=== PATIENT | male | born 1960 | race Caucasian/White ===

== ENCOUNTER 2017-08-15 09:08 | Inpatient (IN) | payer MEDICAID ==
[~2017-08-15] VITALS: Ht 175.3 cm; Wt 79.5 kg
[2017-08-15] VITALS (14 sets, daily range): BP systolic 102–151; BP diastolic 51–88
[2017-08-15] MEDS ORDERED: DOXY50 PO (09:25)
[2017-08-15] MEDS ORDERED: SODIUM CHLORIDE 0.9% 1,000 ML IV ONE (10:30)
[2017-08-15] MEDS ORDERED: ONDANSETRON HCL 4 MG/2 ML VIAL IVP ONE (10:30)
[2017-08-15 10:52] LABS: BASOPHILS % (AUTO) 0.1 % (0.0-2.0); EOSINOPHILS % (AUTO) 0.1 % (1.0-6.0); LYMPHOCYTES # (AUTO) 1.2 K/uL (1.0-4.8); LYMPHOCYTES % (AUTO) 5.8 % (22.0-44.0); MEAN CORPUSCULAR HGB CONC 31.5 G/dL (31.0-37.0); MEAN CORPUSCULAR VOLUME 73 fL (80-100); MONOCYTES % (AUTO) 4.8 % (2.0-9.0); NEUTROPHILS # (AUTO) 18.4 K/uL (1.8-7.7); PLATELET COUNT (AUTO) 658 K/uL (150-450); RED BLOOD CELL COUNT(AUTO) 1.46 MIL/uL (4.50-5.90); RED CELL DISTRIBUTION WIDTH 18.9 % (11.5-14.5); WHITE BLOOD COUNT (AUTO) 20.6 K/uL (4.5-11.0)
[2017-08-15 10:54] LABS: HEMOGLOBIN 3.4 g/dL (13.5-17.5)
[2017-08-15 10:55] LABS: HEMATOCRIT 10.7 % (41-53); NEUTROPHILS % (AUTO) 89.2 % (40.0-70.0)
[2017-08-15 10:59] LABS: ANION GAP 9 mmol/L (8-16); CARBON DIOXIDE 23 mmol/L (22-29); CHLORIDE 106 mmol/L (98-107); CREATININE 1.12 mg/dL (0.60-1.30); GLOMERULAR FILTR. RATE CALC > 60 mL/min (>60); POTASSIUM 4.4 mmol/L (3.5-5.1); SODIUM SERUM 138 mmol/L (136-145); UREA NITROGEN, BLOOD 27 mg/dL (7-18)
[2017-08-15 11:04] LABS: ALANINE AMINOTRANSFERASE 9 U/L (12-78); ALBUMIN 2.3 g/dL (3.4-5.0); ASPARTATE AMINOTRANSFERASE 10 U/L (15-37); BILIRUBIN,TOTAL 0.1 mg/dL (0.1-1.0); TOTAL PROTEIN, SERUM 5.9 g/dL (6.4-8.2)
[2017-08-15 11:05] LABS: LACTIC ACID 1.4 mmol/L (0.4-2.0)
[2017-08-15 11:26] LABS: RBC MORPHOLOGY COMMENT ABNORMAL RBC MORPH
[2017-08-15] MEDS ORDERED: PANTOPRAZOLE SODIUM 80 MG in SODIUM CHLORIDE 0.9% 50 ML IV ONE (11:30)
[2017-08-15] MEDS ORDERED: IOVERSOL 350 MG/ML 100 ML VIAL ONE (12:17)
[2017-08-15] MEDS ORDERED: ACETAMINOPHEN 325 MG TABLET PO PRN ×2 (14:30→14:45)
[2017-08-15] MEDS ORDERED: ONDANSETRON HCL 4 MG/2 ML VIAL IVP PRN ×2 (14:30→14:45)
[2017-08-15] MEDS ORDERED: MAGNESIUM HYDROXIDE SUSPENSION 30 ML UDCUP PO PRN (14:45)
[2017-08-15] MEDS ORDERED: BISACODYL 10 MG RECTAL RECTAL SUPPOSITORY PR PRN (14:45)
[2017-08-15] MEDS ORDERED: HYDROCODONE/ACETAMINOPHEN 5-325 MG TABLET PO PRN (14:45)
[2017-08-15] MEDS ORDERED: ZOLPIDEM TARTRATE 5 MG TABLET PO PRN (14:45)
[2017-08-15] MEDS ORDERED: MORPHINE SULFATE 2 MG/ML SYRINGE IVP PRN (14:45)
[2017-08-15 15:12] LABS: BASOPHILS % (AUTO) 0.1 % (0.0-2.0); EOSINOPHILS % (AUTO) 0 % (1.0-6.0); LYMPHOCYTES # (AUTO) 0.9 K/uL (1.0-4.8); LYMPHOCYTES % (AUTO) 4.4 % (22.0-44.0); MEAN CORPUSCULAR HEMOGLOBIN 27.1 pg (26.0-34.0); MEAN CORPUSCULAR HGB CONC 32.7 G/dL (31.0-37.0); MEAN CORPUSCULAR VOLUME 83 fL (80-100); NEUTROPHILS # (AUTO) 18.8 K/uL (1.8-7.7); PLATELET COUNT (AUTO) 480 K/uL (150-450); RED BLOOD CELL COUNT(AUTO) 2.17 MIL/uL (4.50-5.90); WHITE BLOOD COUNT (AUTO) 20.8 K/uL (4.5-11.0)
[2017-08-15] MEDS: PANTOPRAZOLE SODIUM 80 MG in SODIUM CHLORIDE 0.9% 100 ML IV SCH (15:28)
[2017-08-15 15:30] LABS: HEMOGLOBIN 5.9 g/dL (13.5-17.5)
[2017-08-15 15:31] LABS: NEUTROPHILS % (AUTO) 90.5 % (40.0-70.0)
[2017-08-15 16:40] LABS: RBC MORPHOLOGY COMMENT ABNORMAL RBC MORPH
[2017-08-15] MEDS ORDERED: PHENYLEPHRINE 200 MG/D5%-WATER 250 ML IV PRN (18:45)
[2017-08-15 19:22] LABS: GLUCOSE COMMENT 1 Received Meds; GLUCOSE,POINT OF CARE 137 MG/DL (70-110)
[2017-08-15 20:06] LABS: ABG A-A DIFF O2 239.9 mmHg (10-20.0); ABG BASE EXCESS -25.2 mmol/L (-2.0-3.0); ABG OXYHEMOGLOBIN 96.7 % (94.0-100.0); ABG PCO2 47 mmHg (35-45); ABG PH 6.865 (7.35-7.450); TEMPERATURE, FAHRENHEIT, BG 98.5 FAHREN (96.0-98.6)
[2017-08-15 20:07] LABS: ABG HCO3 6.8 mmol/L (22.0-26.0); ALLEN TEST, BLOOD GAS Positive
[2017-08-15] MEDS ORDERED: DOCUSATE SODIUM 100 MG CAPSULE PO SCH (21:00)
[2017-08-15] MEDS ORDERED: SODIUM BICARBONATE [ADULT] 8.4% 50 MEQ/50 ML SYRINGE IVP ONE ×2 (21:33→21:45)
[2017-08-15] MEDS ORDERED: NOREPINEPHRINE 4 MG/D5%-WATER 250 ML IV PRN (22:15)
[2017-08-15] MEDS ORDERED: SODIUM BICARBONATE 150 MEQ in DEXTROSE 5%-WATER 1,000 ML IV SCH (22:30)
[2017-08-15 23:03] LABS: MEAN CORPUSCULAR HEMOGLOBIN 29.2 pg (26.0-34.0); MEAN CORPUSCULAR HGB CONC 33.1 G/dL (31.0-37.0); MEAN CORPUSCULAR VOLUME 88 fL (80-100); PLATELET COUNT (AUTO) 380 K/uL (150-450); RED BLOOD CELL COUNT(AUTO) 2.34 MIL/uL (4.50-5.90); RED CELL DISTRIBUTION WIDTH 17.4 % (11.5-14.5)
[2017-08-15 23:11] LABS: HEMOGLOBIN 6.9 g/dL (13.5-17.5); WHITE BLOOD COUNT (AUTO) 36.3 K/uL (4.5-11.0)
[2017-08-15 23:12] LABS: HEMATOCRIT 20.7 % (41-53)
[2017-08-15 23:13] LABS: CALCIUM, TOTAL 6.9 mg/dL (8.8-10.5); POTASSIUM 5.8 mmol/L (3.5-5.1)
[2017-08-15 23:22] LABS: BAND NEUTROPHILS % (MANUAL) 8 % (1-5); EOSINOPHILS % (MANUAL) 1 % (1-6); LYMPHOCYTES % (MANUAL) 14 % (22-44); REACTIVE LYMPHOCYTES 4 % (0-0); TOTAL CELLS COUNTED 100
[2017-08-15 23:23] LABS: RBC MORPHOLOGY COMMENT ABNORMAL RBC MORPH
[2017-08-15 23:27] LABS: ABG A-A DIFF O2 48.7 mmHg (10-20.0); ABG BASE EXCESS -20.5 mmol/L (-2.0-3.0); ABG OXYHEMOGLOBIN 98.4 % (94.0-100.0); ABG PCO2 38 mmHg (35-45); TEMPERATURE, FAHRENHEIT, BG 97.6 FAHREN (96.0-98.6)
[2017-08-15 23:28] LABS: ABG HCO3 9.7 mmol/L (22.0-26.0); ABG PH 7.045 (7.35-7.450); ALLEN TEST, BLOOD GAS Positive
[2017-08-15] MEDS ORDERED: DOPamine HCL 400 MG/D5%-WATER 250 ML IV ONE (23:52)
[2017-08-16] VITALS: BP 56/24
[2017-08-16] MEDS ORDERED: DOPamine HCL 400 MG/D5%-WATER 250 ML IV PRN
[2017-08-16] MEDS ORDERED: VASOPRESSIN 100 UNITS in DEXTROSE 5%-WATER 245 ML IV PRN ×2
[2017-08-16 00:16] VITALS: BP 67/21
[2017-08-16] MEDS: PANTOPRAZOLE SODIUM 80 MG in SODIUM CHLORIDE 0.9% 100 ML IV SCH (00:17)
[2017-08-16] MEDS ORDERED: SODIUM CHLORIDE 0.9% 250 ML IV ONE (00:21)
[2017-08-16] MEDS ORDERED: ATROPINE SULFATE 0.1 MG/ML 10 ML SYRINGE IVP ONE ×3 (00:37→01:04)
[2017-08-16] MEDS ORDERED: PIPERACILLIN/TAZO 3.375 GM/D5W 50 ML IV SCH (01:00)
[2017-08-16] MEDS ORDERED: VECURONIUM BROMIDE 10 MG/VIAL IV ONE (01:04)
[2017-08-16] MEDS ORDERED: EPINEPHrine 1:10,000 [1 MG/10 ML] SYRINGE IVP ONE ×2 (01:04)
[2017-08-16] MEDS ORDERED: ETOMIDATE 2 MG/ML 10 ML VIAL IV ONE (01:04)
[2017-08-16] MEDS ORDERED: SODIUM BICARBONATE [ADULT] 8.4% 50 MEQ/50 ML SYRINGE IVP ONE (01:04)
[2017-08-16] MEDS ORDERED: CALCIUM GLUCONATE 100 MG/ML 10 ML IVP ONE (01:04)
[2017-08-16 07:37] LABS: GLUCOSE COMMENT 1 Received Meds; GLUCOSE,POINT OF CARE 68 MG/DL (70-110)
[2017-08-16] MEDS ORDERED: PANTOPRAZOLE SODIUM 40 MG DR TABLET PO SCH (09:00)
== END 2017-08-16 01:05 | disposition expired | DRG 377 ==
LOC: EMS 09:10 → 6N 16:02 → ICU 19:15
PROVIDERS: ADMIT Internal Medicine; ATTEND Internal Medicine
PROC: 5A1935Z Respiratory Ventilation, Less than 24 Consecutive Hours (ICD-10-PCS; principal; 2017-08-15)
PROC: 0BH17EZ Insertion of Endotracheal Airway into Trachea, Via Natural or Artificial Opening (ICD-10-PCS; 2017-08-15)
PROC: 30233N1 Transfusion of Nonautologous Red Blood Cells into Peripheral Vein, Percutaneous Approach (ICD-10-PCS; 2017-08-15)
PROC: 06HY33Z Insertion of Infusion Device into Lower Vein, Percutaneous Approach (ICD-10-PCS; 2017-08-15)
PROC: 5A12012 Performance of Cardiac Output, Single, Manual (ICD-10-PCS; 2017-08-16)
DX: K92.2 Gastrointestinal hemorrhage, unspecified (principal); J96.00 Acute respiratory failure, unspecified whether with hypoxia or hypercapnia; I49.01 Ventricular fibrillation; N17.9 Acute kidney failure, unspecified; E44.0 Moderate protein-calorie malnutrition; E87.2 Acidosis; I95.9 Hypotension, unspecified; E87.5 Hyperkalemia; D64.9 Anemia, unspecified; D72.829 Elevated white blood cell count, unspecified; D75.89 Other specified diseases of blood and blood-forming organs; I46.9 Cardiac arrest, cause unspecified; Z68.25 Body mass index [BMI] 25.0-25.9, adult; Z88.0 Allergy status to penicillin
CPT/HCPCS: 36430; 70491; 71260; 72193; 74160; 82805; 82962; 83605; 86850; 86900; 86901; 86920; 94002; 96361; 96365; 96375; 96376; 99291; C9113; J0171; J0461; J0610; J1265; J2270; J2370; J2405; J2543; J3490; J7030; J7050; J7060; P9016